=== PATIENT | female | born 1965 | race Caucasian/White ===

== ENCOUNTER 2021-06-09 12:59 | Day surgery (SDC) | payer MEDICAID, SELFPAY ==
[2021-06-09] VITALS (11 sets, daily range): BP systolic 118–157; BP diastolic 53–97; PULSE 92–108; RESP 16; TEMP 36.4–37.2; O2SAT 92–100; BMI 30.4
[2021-06-09] MEDS: Lactated Ringers 1,000 ML 100 ML IV ×2 (13:15→15:01)
[2021-06-09 13:45] LABS: Hematocrit 44.7 % (37-47); Hemoglobin 15.3 g/dL (12.0-15.0); Mean Corp Hgb Conc 34.2 g/dL (32-36); Mean Corpuscular Hgb 32.6 pg (27.0-32.0); Mean Corpuscular Volume 95.1 fL (81-99); Mean Platelet Vol. 9.5 fl (6.2-12.0); Platelet Count 302 K/mm3 (150-450); RBC Distribution Width CV 11.8 % (11.6-14.6); RBC Distribution Width SD 40.9 fl (35.1-43.9); White Blood Count 13.8 K/mm3 (4.4-11.0)
--- NOTE | 2021-06-09 14:28 | PCM.OPRPT ---
Report of Operation Date of Procedure: 06/09/21 Pre-Operative Diagnosis: Vulvar hematoma Post-Operative Diagnosis: Same Surgery/Procedure Performed:: Incision and drainage of vulvar hematoma Description of Surgical Findings:: Right vulvar hematoma measuring 5x7cm Surgeon: Mahad Abdalla Type of Anesthesia: General/Supplemental (LMA) Specimen's removed: None Estimated Blood Loss (mL): 50ml Fluids Replaced: 800ml Description of Procedure: Patient taken to OR. Anesthesia was placed & found to be adequate. She was placed in the dorsal lithotomy position, prepped & draped in the normal sterile fashion. Stab incision made in vulvar hematoma & extended with scalpel. Blood & clot evacuated. Active bleeding cauterized with bovie. Fibrillar placed to ensure continued hemostasis. Vaginal incision reapproximated with interrupted sutures of 3-0 vicryl. At end of procedure all instruments were removed from vaginal cavity. Sponge, lap & needle counts were correct x2. Vaginal sweep performed. Procedure Start Time: 14:54 Procedure Stop Time: 13:14 Complications None Admit VTE Documentation VTE Present on Admission: No VTE Mechan Device Prophylaxis: SCD's
--- NOTE | 2021-06-09 15:20 | PCM.DC ---
Discharge Instructions Diet Discharge Diet: No restrictions Activity Discharge Activity: Return to Normal Activity (after 24 hours) May shower in (days): 1 May resume sexual activity in: 2 weeks (and when cleared by physician) Weight Bearing Status: Weight bearing as tolerated Dressing / Incision Call your doctor if your incision/area has: Continuous Slow Oozing, Sudden Increased Bleeding, Increased Pain/ Swelling, Increased Redness, Foul Smelling Discharge and Swelling at the incision site Call your doctor if you observe: Fever of 101 or Higher, Coldness, Increased Pain, Inability to urinate, Using more than 1 pad per hour, Shortness of breath, Fainting spells, Chest pain, Increased palpitations (irregular heartbeat) and Uncontrolled pain Suture Line Care: Avoid Pulling/Pushing and Avoid Pinching/Bending Cleanse incision/area with: Soap & Water Follow Up Care Please Follow Up With: Mahad Abdalla MD When: Office will call you tomorrow Test Results: Test results from this visit will be discussed in further detail at your follow-up appointment, if applicable. Discharge Plan Admission Primary Reason for Your Visit: Vulvar hematoma Attending Provider: Mahad Abdalla Primary Care Provider: Leona Whitten Discharge Orders/Prescriptions Prescriptions: New oxycodone 5 mg tablet 5 mg PO Q8H PRN (Reason: pain) 4 Days Qty: 12 RF: 0 acetaminophen [Tylenol Extra Strength] 500 mg tablet 1,000 mg PO Q6H PRN (Reason: fever or pain) Qty: 60 RF: 0 Continued atorvastatin 40 mg tablet 40 mg PO DAILY RF: 0 metformin 500 mg tablet 500 mg PO DAILY RF: 0 clonidine HCl 0.1 mg tablet 0.1 mg PO DAILY RF: 0 hydroxyzine HCl 50 mg tablet 50 mg PO DAILY RF: 0 estradiol 0.025 mg/24 hr patch weekly 0.025 mg transdermal QWEEK RF: 0 mirtazapine 15 mg tablet 15 mg PO DAILY RF: 0 ibuprofen 600 mg tablet 600 mg PO PRN PRN (Reason: PAIN) RF: 0 Referrals / Follow Up: Leona Whitten, RN [Primary Care Provider] - Disposition Disposition (needs filled in before D/C Order can be placed): Home, Self Care
[2021-06-09 17:11] LABS: Bedside Glucose 129 mg/dL (70-110)
--- NOTE | 2021-06-09 17:30 | PCM.DC ---
Discharge Instructions Diet Discharge Diet: No restrictions Activity May shower in (days): 1 May resume sexual activity in: 2 weeks (and when cleared by physician) Weight Bearing Status: Weight bearing as tolerated Dressing / Incision Call your doctor if your incision/area has: Continuous Slow Oozing, Sudden Increased Bleeding, Increased Pain/ Swelling, Increased Redness, Foul Smelling Discharge and Swelling at the incision site Call your doctor if you observe: Fever of 101 or Higher, Coldness, Increased Pain, Inability to urinate, Using more than 1 pad per hour, Shortness of breath, Fainting spells, Chest pain, Increased palpitations (irregular heartbeat) and Uncontrolled pain Suture Line Care: Avoid Pulling/Pushing and Avoid Pinching/Bending Cleanse incision/area with: Soap & Water Follow Up Care Please Follow Up With: Mahad Abdalla MD Test Results: Test results from this visit will be discussed in further detail at your follow-up appointment, if applicable. Discharge Plan Admission Primary Reason for Your Visit: Vulvar hematoma Attending Provider: Mahad Abdalla Primary Care Provider: Leona Whitten Discharge Orders/Prescriptions Prescriptions: New oxycodone 5 mg tablet 5 mg PO Q8H PRN (Reason: pain) 4 Days Qty: 12 RF: 0 acetaminophen [Tylenol Extra Strength] 500 mg tablet 1,000 mg PO Q6H PRN (Reason: fever or pain) Qty: 60 RF: 0 sulfamethoxazole-trimethoprim [Bactrim DS] 800-160 mg tablet 1 tab PO BID Qty: 14 RF: 0 Continued atorvastatin 40 mg tablet 40 mg PO DAILY RF: 0 metformin 500 mg tablet 500 mg PO DAILY RF: 0 clonidine HCl 0.1 mg tablet 0.1 mg PO DAILY RF: 0 hydroxyzine HCl 50 mg tablet 50 mg PO DAILY RF: 0 estradiol 0.025 mg/24 hr patch weekly 0.025 mg transdermal QWEEK RF: 0 mirtazapine 15 mg tablet 15 mg PO DAILY RF: 0 ibuprofen 600 mg tablet 600 mg PO PRN PRN (Reason: PAIN) RF: 0 Referrals / Follow Up: Leona Whitten, RN [Primary Care Provider] - Disposition Disposition (needs filled in before D/C Order can be placed): Home, Self Care
[2021-06-09] MEDS: oxyCODONE 5 MG Tablet PO (18:02)
== END 2021-06-09 18:30 | disposition home or self-care (01) ==
LOC: SDC 13:11 → AC 13:12
PROVIDERS: Referring Provider Obstetrics & Gynecology; Visit Provider Obstetrics & Gynecology
PROC: (CPT 56405; principal; 2021-06-09 14:05)
DX: N90.89 Other specified noninflammatory disorders of vulva and perineum (principal); I10 Essential (primary) hypertension; E11.9 Type 2 diabetes mellitus without complications; E78.5 Hyperlipidemia, unspecified; F17.210 Nicotine dependence, cigarettes, uncomplicated; F17.290 Nicotine dependence, other tobacco product, uncomplicated; Z79.84 Long term (current) use of oral hypoglycemic drugs; Z79.899 Other long term (current) drug therapy
CPT/HCPCS: 00400; 56405; 82962; 85027; J7120; J2405